=== PATIENT | female | born 1990 | race Caucasian/White ===

== ENCOUNTER 2016-07-01 10:36 | Day surgery (SDC) | payer OTHER ==
[2016-06-28 12:11] VITALS: BMI 24.3
[2016-07-01] MEDS ORDERED: PROPOFOL 20 ML ONE (10:39)
[2016-07-01 11:37] VITALS: TEMP 98
[2016-07-01 11:51] VITALS: BP 120/72; PULSE 66
--- NOTE | 2016-07-02 13:38 | PATH ---
Surgical Pathology Report Patient Name: JAK FORTE [facility]. Rec. #: [id number] /Age/Gender: 1990 (Age: 26) / F Account: [id number] Location: [facility]-ENDOSCOPY Taken: 07/01/2016 Received: 07/01/2016 Reported: 07/02/2016 Physicians: Stefan Dominguez M.D. Specimen(s) Received A: BX DUODENUM B: BX ANTRUM Clinical History Peptic ulcer disease Rule out celiac disease, gastritis Final Diagnosis A. DUODENUM, BIOPSY: DUODENAL MUCOSA WITH NO PATHOLOGIC CHANGES. NO HISTOLOGIC EVIDENCE OF GLUTEN SENSITIVE ENTEROPATHY (CELIAC SPRUE) IDENTIFIED. B. STOMACH, ANTRUM, BIOPSY: GASTRIC ANTRAL MUCOSA WITH MILD REACTIVE GASTROPATHY. IMMUNOSTAIN FOR H. PYLORI IS NEGATIVE. Electronically Signed Kaleb Lovell M.D. Gross Description A. Received in formalin, labeled "duodenum" are 2 morillo, irregular portions of soft tissue averaging 0.4 cm. in greatest dimension. The specimens are submitted in toto in one cassette. B. Received in formalin, labeled "antrum" are 2 morillo, irregular portions of soft tissue measuring 0.4 and 0.5 cm. in greatest dimension. The specimens are submitted in toto in one cassette. 07/01/2016 saudi07/01/2016
== END 2016-07-01 11:56 | disposition home or self-care (01) ==
LOC: FASU-ENDO 10:36
PROVIDERS: ATTEND Internal Medicine Gastroenterology
PROC: 0DB98ZX Excision of Duodenum, Via Natural or Artificial Opening Endoscopic, Diagnostic (ICD-10-PCS; principal; 2016-07-01 11:03)
PROC: 0DB68ZX Excision of Stomach, Via Natural or Artificial Opening Endoscopic, Diagnostic (ICD-10-PCS; 2016-07-01 11:03)
DX: K31.9 Disease of stomach and duodenum, unspecified (principal); R10.13 Epigastric pain
CPT/HCPCS: 84703; 88305-TC; 88342-TC